=== PATIENT | male | born 1960 | race Caucasian/White ===

== ENCOUNTER 2018-08-03 16:28 | Day surgery (SDC) | payer OTHER ==
[2018-08-03] MEDS ORDERED: OPIUM/BELLADONNA ALKALO SUPP PR PRN (16:40)
[2018-08-03] MEDS ORDERED: LR 1,000 ML IV ONE (16:41)
--- NOTE | 2018-08-03 16:54 | PDHPUP ---
History & Physical Update H&P update statement: This history and physical update is based on an assessment of the patient which was completed after admission or registration (within 24 hours), but prior to the surgery/procedure. H&P update: H&P reviewed & patient examined, no change in patient's condition since H&P completed
[2018-08-03] MEDS ORDERED: levOFLOXACIN 500 MG/DEXTROSE 100 ML IV ONE (18:00)
[2018-08-03] MEDS ORDERED: MIDAZOLAM 2 MG/2 ML VIAL IVP ONE (18:59)
--- NOTE | 2018-08-03 18:59 | PDANEPAE ---
ANE History of Present Illness ureteroscopy with stent placement - left ANE Past Medical History - Cardiovascular History Hx Hypertension: No Hx Arrhythmias: No Hx Chest Pain: No Hx Coronary Artery / Peripheral Vascular Disease: No Hx CHF / Valvular Disease: No Hx Palpitations: No - Pulmonary History Hx COPD: No Hx Asthma/Reactive Airway Disease: No Hx Recent Upper Respiratory Infection: No Hx Oxygen in Use at Home: No Hx Sleep Apnea: Yes Sleep Apnea Screening Result - Last Documented: Positive Pulmonary History Comment: DARWIN USES C-PAP - Neurologic History Hx Cerebrovascular Accident: No Hx Seizures: No Hx Dementia: No - Endocrine History Hx Diabetes: Yes Endocrine History Comment: NIDDM - Renal History Hx Renal Disorders: Yes Renal History Comment: KIDNEY STONES. PASSED ONE APPROX 8 YEARS - Liver History Hx Hepatic Disorders: No - Neurological & Psychiatric Hx Hx Neurological and Psychiatric Disorders: Yes Neurological / Psychiatric History Comment: ANXIETY - Cancer History Hx Cancer: No - Congenital Disorder History Hx Congenital Disorders: No - GI History Hx Gastrointestinal Disorders: Yes Gastrointestinal History Comment: GERD - Chronic Pain History Chronic Pain: No - Surgical History Prior Surgeries: COLONOSCOPY ANE Review of Systems Review of Systems: - Exercise capacity METS (RN): 4 METS ANE Patient History - Allergies Allergies/Adverse Reactions: codeine Allergy (Verified 08/02/18 17:53) Rash Penicillins Allergy (Verified 08/02/18 17:53) Rash - Home Medications Home Medications: Aspirin DAILY 08/02/18 [Last Taken 08/01/18] Crestor HS 08/02/18 [Last Taken 08/02/18] Flomax 0.4 MG (*) HS 08/02/18 [Last Taken 08/02/18] Herbals/Supplements -Info Only DAILY 08/02/18 [Last Taken 08/01/18] Hydrocodone-Acetamin 5-325 mg PRN 08/02/18 [Last Taken 08/03/18] Metformin 1000 mg BID 08/02/18 [Last Taken 08/02/18] Protonix 40mg (*) DAILY 08/02/18 [Last Taken 08/02/18] Sertraline HCl HS 08/02/18 [Last Taken 08/02/18] - NPO status NPO Since - Liquids (Date): 08/03/18 NPO Since - Liquids (Time): 12:30 NPO Since - Solids (Date): 08/02/18 NPO Since - Solids (Time): 20:00 - Smoking Hx Smoking Status: Never smoked - Family Anes Hx Family Hx Anesthesia Complications: NEG ANE Labs/Vital Signs - Vital Signs Blood Pressure: 155/93 Heart Rate: 57 Respiratory Rate: 16 O2 Sat (%): 92 Height: 167.64 cm Weight: 63.503 kg ANE Physical Exam - Airway Neck exam: FROM Mallampati Score: Class 2 Mouth exam: normal dental/mouth exam - Pulmonary Pulmonary: no respiratory distress - Cardiovascular Cardiovascular: regular rate and rhythym - ASA Status ASA Status: III ANE Anesthesia Plan Anesthesia Plan: GA w LMA
--- NOTE | 2018-08-03 19:06 | POSTANESTH ---
Post Anesthetic Evaluation Cardiovascular Status: Normal, Stable Respiratory Status: Normal, Stable Level of Consciousness/Mental Status: Can Participate in Eval, Alert and Oriented Pain Control: Adequate, Prn Tx Ordered Nausea/Vomiting Control: Adequate, Prn Tx Ordered Complications Possibly Related to Anesthesia: None Noted
[2018-08-03] MEDS ORDERED: fentaNYL 100 MCG/2 ML INJ ONE (19:10)
[2018-08-03] MEDS ORDERED: PROPOFOL 200 MG/20 ML VIAL ONE (19:10)
[2018-08-03] MEDS ORDERED: DEXAMETHASONE 4 MG/ML VIAL ONE (19:12)
[2018-08-03] MEDS ORDERED: LIDOCAINE 2% 2 ML INJ ONE ×2 (19:13)
[2018-08-03] MEDS ORDERED: ONDANSETRON 4 MG/2 ML VIAL ONE (19:19)
[2018-08-03] MEDS ORDERED: KETOROLAC 30 MG/1 ML SDV ONE (19:19)
[2018-08-03] MEDS ORDERED: LIDOCAINE 2% JELLY 20 ML (UROJECT) ONE (19:28)
[2018-08-03] MEDS ORDERED: IOPAMIDOL (ISOVUE-M 300) 15 ML VIAL ONE (19:29)
[2018-08-03] MEDS ORDERED: OPIUM/BELLADONNA ALKALO SUPP PR ONE (19:29)
[2018-08-03] MEDS ORDERED: ALBUTEROL 3 ML DEYVIAL IH PRN (20:39)
[2018-08-03] MEDS ORDERED: PROMETHAZINE HCL 25 MG/ML INJ IVP PRN (20:39)
[2018-08-03] MEDS ORDERED: NALOXONE HCL 0.4 MG/ML INJ IVP PRN (20:39)
[2018-08-03] MEDS ORDERED: HYDROCODONE/APAP 5/325 TAB PO PRN (20:39)
[2018-08-03] MEDS ORDERED: oxyCODONE IR 5 MG TAB PO PRN (20:39)
[2018-08-03] MEDS ORDERED: HYDROmorphONE/DILAUDID 1 MG/ML INJ IVP PRN (20:39)
[2018-08-03] MEDS ORDERED: LR 500 ML IV PRN (20:39)
[2018-08-03] MEDS ORDERED: PHENYLEPHRINE HCL 100 MCG/ML SYR IVP PRN (20:39)
[2018-08-03] MEDS ORDERED: ACETAMINOPHEN 500 MG TAB PO PRN (20:39)
[2018-08-03] MEDS ORDERED: fentaNYL 100 MCG/2 ML INJ IVP PRN (20:39)
[2018-08-03] MEDS ORDERED: ONDANSETRON 4 MG/2 ML VIAL IVP PRN (20:39)
[2018-08-03] MEDS ORDERED: DIAZEPAM 10 MG/2 ML SYR IVP PRN (20:39)
--- NOTE | 2018-08-03 20:54 | POSTOPPROG ---
Post Op Note Date of Operation: 08/03/18 Surgeon: Pavithra Simpson Anesthesia: LMA Pre-op Diagnosis: left obstructing uretreal stone, diabetes, MAGGIE Post-op Diagnosis: same Indication: left obstructing uretreal stone, diabetes, MAGGIE Procedure: cysto,LURS,laser,stent,basketext stone, RGP, fluoro Findings: stone partly , circualr ureteral scarring distal and midureter Inf/Abcess present in the surg proc area at time of surgery?: No EBL: Minimal Complications: none, patient tolerated procedure well Specimen(s): stone
--- NOTE | 2018-08-03 21:41 | GOP ---
[f rep st] OPERATIVE REPORT DATE OF OPERATION: 08/03/2018 SURGEON: Pavithra Simpson MD ANESTHESIOLOGIST: Dr. Gleason. PREOPERATIVE DIAGNOSIS: 1. Left ureteral stone. 2. Hydronephrosis. 3. Diabetes. 4. Acute kidney injury. POSTOPERATIVE DIAGNOSIS: 1. Left ureteral stone. 2. Hydronephrosis. 3. Diabetes. 4. Acute kidney injury. 5. Circumferential ureteral scarring in 2 areas of the ureter. PROCEDURE PERFORMED: 1. Cystoscopy. 2. Left ureteroscopy. 3. Laser lithotripsy. 4. Basket extraction of stone. 5. Placement of the stent. 6. Intraoperative fluoroscopy and retrograde pyelogram. FINDINGS: The distal stone had the tip . I was able to gain access to the stone after placi ng 2 wires and laser it into fragments and dust and remove all the fragments. I did note 2 areas of circumferential ureteral scarring that were in the distal ureter just proximal to ureteral orifice an d then 1 in the mid ureter where the stone had been seen on the CT scan on the other day. SPECIMENS: Stone. ESTIMATED BLOOD LOSS: Minimal. DESCRIPTION OF PROCEDURE: The patient was taken back to the cystoscopy suite, placed on the cystosco py table in a supine position. General anesthesia induced without complication. Time-out performed. Core measures satisfied, including placement of Graham Hugger, SCDs, administration of Levaquin antib iotics. He was brought to the end of the table, placed in dorsal lithotomy position. All pressure p oints padded. Genitalia prepped and draped in the standard surgical fashion with Betadine. A rigid cystoscope easily cannulated the urethral meatus and was advanced atraumatically in the bladder. Mckeon cystoscopy was performed. The very tip of the distal stone was at the left ureteral orific e. There were no other lesions in the bladder. I was able to place 2 Glidewires into the left urete ral orifice with the assistance of a 5-[place] open-ended catheter. The stone moved up just slightly. I then placed a 14-[place] Aguilera catheter to decompress the bladder. I removed the cystoscope and t [place] advanced a semi-rigid ureteroscope into the bladder and into the left ureteral orifice. I right away encountered the stone, lasered it into tiny fragments and dust. I then advanced a basket into t he left ureteral orifice and basket extracted stone fragments that were not dust. The rest was just dust. I then examined the wall of the ureter. There was a circumferential scarring just proximal to the area where I had lasered the stone and then also another circumferential scarring just in the mi d ureter. I suspect this is where the stone was seen on the CT scan the other day. During the laser ing procedure, I did not laser any of the ureteral tissue and thus the scarring was from either prior stone sitting and causing the scarring at the ureter. So I was able to advance the ureteroscope all the way into the left collecting system. I saw no other stone fragments. I still had a safety wire up. I removed the scope leaving the safety wire in place, backloaded the safety wire into a cystosc ope and then placed a 6-[place] multivariable stent with cystoscopic and fluoroscopic guidance with a nice curl in the renal pelvis, a nice curl in the bladder. I then used the cystoscope to remove the stones in the bladder that had been basket extracted from the left ureter. The bladder was then empt ied. The scope removed. Lidocaine jelly placed per urethra and belladonna per rectum. At this poin t, the procedure was considered complete. He was awoken from anesthesia and transferred to PACU in g ood condition. COMPLICATIONS: None. /[id number]/MODL
[2018-08-03 21:54] VITALS: BP 127/86
== END 2018-08-03 22:44 | disposition home or self-care (01) ==
LOC: FSGY 16:28 → EDSTATUS 18:15 → FSGY 22:44
PROVIDERS: ATTEND Urology
DX: N13.2 Hydronephrosis with renal and ureteral calculous obstruction (principal); Z87.442 Personal history of urinary calculi; E11.9 Type 2 diabetes mellitus without complications; G47.33 Obstructive sleep apnea (adult) (pediatric); Z79.84 Long term (current) use of oral hypoglycemic drugs
CPT/HCPCS: 52356; 76000; C1769; 82365-90; C2625; J1100; J1885; J1956; J2250; J2405; J2704; J3010; Q9967